=== PATIENT | male | born 1960 | race Caucasian/White ===

== ENCOUNTER 2018-01-21 07:52 | Emergency (ER) | payer OTHER ==
[2018-01-21 08:15] VITALS: BP 126/63; PULSE 77; TEMP 98.5; BMI 34.5
[2018-01-21] MEDS ORDERED: IBUPROFEN 600 MG TABLET (FP) PO ONE ×2 (08:38→08:39)
--- NOTE | 2018-01-21 08:53 | PDOC ---
History of Present Illness - General Chief Complaint: Pain Stated Complaint: SHOULDER PAIN Time Seen by Provider: 01/21/18 08:27 History Source: Patient Exam Limitations: No Limitations - History of Present Illness Initial Comments: 01/21/18 08:44 57 year old male with history of HTN, and thyroid, no surgical history presents with injury to left shoulder. 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 Complaining of swelling, pain especially with movement. Denies numbness or tingling in fingers. 01/21/18 08:46 Occurred: reports: this morning Severity: reports: moderate Pain Location: reports: upper extremity Method of Injury: Yes: other (injury with a pipe while working on a garbage compactor) Modifying Factors: improves with: immobilization Loss of Consciousness: no loss of consciousness Past History - Past Medical History Allergies/Adverse Reactions: Allergies Allergy/AdvReac Type Severity Reaction Status Date / Time No Known Allergies Allergy Verified 01/21/18 08:00 Home Medications: Ambulatory Orders Unobtainable Home Med List 0 dose .ROUTE UTDICT #0 08/28/11 Ibuprofen 600 mg PO TID #20 tablet 01/21/18 Anemia: No Asthma: No Cancer: No Cardiac Disorders: Yes (stents) CVA: No COPD: No CHF: No Dementia: No Diabetes: No GI Disorders: No Disorders: No HTN: Yes Hypercholesterolemia: Yes Liver Disease: No Seizures: No Thyroid Disease: No - Immunization History Immunization Up to Date: Yes (nicola 2007) - Suicide/Smoking/Psychosocial Hx Smoking Status: No Smoking History: Never smoked Have you smoked in the past 12 months: No Number of Cigarettes Smoked Daily: 0 Information on smoking cessation initiated: No Hx Alcohol Use: No Drug/Substance Use Hx: No Substance Use Type: None Hx Substance Use Treatment: No Trauma Specific PMHX - Complaint Specific PMHX Back Injury: No Review of Systems - Review of Systems Able to Perform ROS?: Yes Is the patient limited Lithuanian proficient: No Constitutional: No: Chills, Fever, Night Sweats, Weakness, Weight Stable HEENTM: No: Ear Discharge, Nose Pain, Nose Congestion, Nose Bleeding, Hearing Loss, Throat Pain, Throat Swelling, Mouth Pain, Difficulty Swallowing, Mouth Swelling Respiratory: No: Cough Cardiac (ROS): No: Chest Pain, Palpitations ABD/GI: No: Abdominal Distended, Nausea, Poor Fluid Intake, Vomiting, Abdominal cramping : No: Burning, Hematuria Musculoskeletal: Yes: Joint Pain, Joint Swelling Integumentary: Yes: Bruising, Erythema Neurological: No: Numbness, Paresthesia, Tremors, Weakness *Physical Exam - Vital Signs Last Vital Signs Temp Pulse Resp BP Pulse Ox 98.5 F 77 20 126/63 97 01/21/18 08:02 01/21/18 08:02 01/21/18 08:02 01/21/18 08:02 01/21/18 08:02 - Physical Exam General Appearance: Yes: Nourished, Appropriately Dressed. No: Apparent Distress HEENT: positive: MEHREEN. negative: TMs Normal, Pharynx Normal Neck: negative: Rigid, Supple, Lymphadenopathy (R), Lymphadenopathy (L) Respiratory/Chest: positive: Lungs Clear, Normal Breath Sounds. 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 negative: Motor Strength 5/5 Moderate Sedation - Procedure Monitoring Vital Signs: Procedure Monitoring Vital Signs Temperature 98.5 F 01/21/18 08:02 Pulse Rate 77 01/21/18 08:02 Respiratory Rate 20 01/21/18 08:02 Blood Pressure 126/63 01/21/18 08:02 O2 Sat by Pulse Oximetry (%) 97 01/21/18 08:02 ED Treatment Course - RADIOLOGY Radiology Studies Ordered: Category Date Time Status SHOULDER-W/TRANS-LEFT [RAD] Stat Radiology 01/21/18 08:37 Ordered Medical Decision Making - Medical Decision Making 01/21/18 08:57 57 year old male with history of HTN and thyroid presents with pain and swelling to left shoulder, after injury at work analgesia, refused IM xray of left shoulder 01/21/18 09:31 xray negative for fracture or dislocation cat scan of upper extremity ordered:patient with pain, swelling and some deformity posteriorly 01/21/18 12:10 Patient does not want to wait for final ct results states he will follow up with Dr. Mac ( [phone] pt's number) D/c home with sling and instructions to follow up with dr. mac *DC/Admit/Observation/Transfer Diagnosis at time of Disposition: Shoulder injury Qualifiers: Encounter type: initial encounter Laterality: left Qualified Code(s): S49.92XA - Unspecified injury of left shoulder and upper arm, initial encounter - Discharge Dispostion Disposition: HOME Condition at time of disposition: Good Decision to Admit order: No - Prescriptions Prescriptions: Ibuprofen 600 mg PO TID #20 tablet - Referrals Referrals: Constantine Mireles MD [Primary Care Provider] - Chad Mac MD [Staff Physician] - Call tomorrow (see within 3 days) - Patient Instructions Printed Discharge Instructions: How to Use a Sling Additional Instructions: Please call Dr. Mac for follow up appointment Apply ice to area 3 times daily for 20 minutes. Apply for 3 days only Return to emergency department for numbness or tingling in fingers - Post Discharge Activity Forms/Work/School Notes: Back to Work
== END 2018-01-21 12:25 | disposition home or self-care (01) ==
LOC: JERFT 07:52 → JER 07:52 → JERFT 12:25
DX: S49.82XA Other specified injuries of left shoulder and upper arm, initial encounter (principal); X50.0XXA Overexertion from strenuous movement or load, initial encounter; Y93.H9 Activity, other involving exterior property and land maintenance, building and construction; Y92.238 Other place in hospital as the place of occurrence of the external cause; Y99.0 Civilian activity done for income or pay
CPT/HCPCS: 73030-TC-LT-FY; 73200-TC-RT; 99281-25